=== PATIENT | male | born 1995 | race Caucasian/White ===

== ENCOUNTER 2016-07-17 17:31 | Emergency (ER) | payer OTHER ==
[2016-07-17] MEDS ORDERED: Acetaminophen TAB* 325 MG PO ONE (18:06)
[2016-07-17] MEDS ORDERED: NS 0.9% 1000 ML* 1,000 ML IV ONE (18:10)
[2016-07-17 18:17] LABS: Hematocrit 40 % (42-52); Mean Corpuscular HGB Conc 35 g/dl (31-36); Mean Corpuscular Hemoglobin 30 pg (27-31); Mean Corpuscular Volume 88 fL (80-94); Mean Platelet Volume 8 um3 (7.4-10.4); Red Cell Distribution Width 13 % (10.5-15); White Blood Count 7.9 10^3/ul (3.5-10.8)
[2016-07-17 18:35] LABS: Albumin 4.6 g/dL (3.2-5.2); BUN/Creatinine Ratio 7.5 (8-20); Calcium 9.2 mg/dL (8.6-10.3); EGFR African American 134.6 (>60); EGFR Non-African American 104.7 (>60); Globulin 2.8 g/dL (2-4); Potassium 3.6 mmol/L (3.5-5.0); Total Bilirubin 0.6 mg/dL (0.2-1.0); Total Protein 7.4 g/dL (6.4-8.9)
[2016-07-17] MEDS ORDERED: Oseltamivir CAP* 75 MG PO ONE (19:10)
[2016-07-17] MEDS ORDERED: Ibuprofen TAB* 200 MG PO ONE (19:14)
[2016-07-17 20:23] VITALS: BP 104/47
--- NOTE | 2016-07-17 21:05 | ED ---
Blue Perea Billy, scribed for Davis Bonner MD on 07/17/16 at 1828 . Headache - HPI Summary HPI Summary: Patient is a 20 year-old male coming to [facility] presenting with constant headache starting yesterday, much worse starting earlier today. He also reports cough, nausea, and urinary retention (last urine several hours ago). No dysuria or hematuria. He also reports rhinorrhea and nasal congestion for the last 2-3 days. He also reports diffuse back pain and myalgia. Denies sore throat. ASA today for his symptoms, no improvement. - History Of Current Complaint Chief Complaint: EDFever Stated Complaint: HEADACHE-SENT FROM [facility] Time Seen by Provider: 07/17/16 18:04 Hx Obtained From: Patient Onset/Duration: Gradual Onset, Started hours ago, Still Present Initially Headache Was: Moderate Currently Pain Is: Moderate Timing: Constant Aggravating Factor: Nothing Allevating Factors: Nothing Associated Signs And Symptoms: Nausea, Other (Noted In Comments) - cough, urinary retention, rhinorrhea, nasal congestion - Allergies/Home Medications Allergies/Adverse Reactions: Allergies Allergy/AdvReac Type Severity Reaction Status Date / Time Cough Syrup Allergy Unknown Uncoded 07/17/16 18:05 Reaction Details PMH/Surg Hx/FS Hx/Imm Hx Infectious Disease History: No Infectious Disease History: Denies: Traveled Outside the US in Last 30 Days Review of Systems Positive: Nasal Discharge. Negative: Sore Throat Positive: Cough Positive: Nausea Positive: other - urinary retention. Negative: dysuria, hematuria Positive: Myalgia, Other - diffuse back pain Positive: Headache All Other Systems Reviewed And Are Negative: Yes Physical Exam Triage Information Reviewed: Yes Vital Signs On Initial Exam: Initial Vitals Temp Pulse Resp BP Pulse Ox 101.8 F 100 16 121/73 98 07/17/16 18:02 07/17/16 18:02 07/17/16 18:02 07/17/16 18:02 07/17/16 18:02 Vital Signs Reviewed: Yes Appearance: Positive: Well-Appearing - nontoxic, Pain Distress - uncomfortable Skin: Positive: Other - No rashes, petechia, or purpura of the chest, back, or extremities. Eyes: Positive: TIGRE ENT: Positive: TM bulging - Right TM bulging, injected, without obvious purulent effusion., Tonsillar swelling - Bilateral tonsillar hypertrophy. Negative: Pharyngeal erythema, Tonsillar exudate Neck: Positive: Other: - Neck tenderness without adenopathy or swelling; neck soft, no nuchal rigidity; no obvious neck stiffness. Negative: No Lymphadenopathy, Nuchal Rigidity Respiratory/Lung Sounds: Positive: Clear to Auscultation. Negative: Rales, Wheezes Cardiovascular: Positive: RRR, Other - no gallops, S1, S2. Negative: Murmur, Rub Abdomen Description: Positive: Nontender, Soft. Negative: CVA Tenderness (R), CVA Tenderness (L) Musculoskeletal: Positive: Other - calves are soft and nontender. Negative: Edema Left, Edema Right Neurological: Positive: Alert, Oriented to Person Place, Time Psychiatric: Positive: Affect/Mood Appropriate - logical and coherent AVPU Assessment: Alert Diagnostics - Vital Signs Vital Signs Temp Pulse Resp BP Pulse Ox 07/17/16 18:02 101.8 F 100 16 121/73 98 - Laboratory Lab Results: Lab Results 07/17/16 Range/Units 18:06 WBC 7.9 (3.5-10.8) 10^3/ul RBC 4.60 (4.0-5.4) 10^6/ul Hgb 14.0 (14.0-18.0) g/dl Hct 40 L (42-52) % MCV 88 (80-94) fL MCH 30 (27-31) pg MCHC 35 (31-36) g/dl RDW 13 (10.5-15) % Plt Count 203 (150-450) 10^3/ul MPV 8 (7.4-10.4) um3 Neut % (Auto) 80.9 (38-83) % Lymph % (Auto) 3.5 L (25-47) % Trinity % (Auto) 14.9 H (1-9) % Eos % (Auto) 0.1 (0-6) % Baso % (Auto) 0.6 (0-2) % Absolute Neuts (auto) 6.4 (1.5-7.7) 10^3/ul Absolute Lymphs (auto) 0.3 L (1.0-4.8) 10^3/ul Absolute Monos (auto) 1.2 H (0-0.8) 10^3/ul Absolute Eos (auto) 0 (0-0.6) 10^3/ul Absolute Basos (auto) 0 (0-0.2) 10^3/ul Absolute Nucleated RBC 0 10^3/ul Nucleated RBC % 0 Result Diagrams: 07/17/16 18:06 07/17/16 18:06 Lab Statement: Any lab studies that have been ordered have been reviewed, and results considered in the medical decision making process. Headache Course/Dx - Course Assessment/Plan: 21 year-old otherwise healthy [employer] student developed progressive symptoms over the last 12 hours. He has mylagia, fever, headache, influenza-positive. I do not believe this is a false negative, namely because we have seen many influenza-positive tests here in [place]. The flu season has hit. This is clinically consistent as it was rapidly progressive. I do not believe this is meningitis, especially bacterial meningitis because WBC normal, he does not have meningococcal rash, and has been immunized. Finally, he has no nuchal rigidity but states that he neck is stiff, and negative Kernig and Brudzinski. In short, he really does not have any convincing meningeal signs. - Diagnoses Differential Diagnosis/HQI/PQRI: Epidural Hematoma, Subdural Hematoma, Meningitis, Migraine, Sinus Headache, Subarachnoid Hemorrhage, Temporal Arteritis, Tension Headache, Viral Syndrome Provider Diagnoses: Influenza A Discharge - Discharge Plan Condition: Good Disposition: HOME Prescriptions: Oseltamivir CAP* [Tamiflu CAP*] 75 mg PO BID #9 cap Patient Education Materials: Influenza (ED) Referrals: [facility] [Outside] - 2 Days The documentation as recorded by the Blue hernández Billy accurately reflects the service I personally performed and the decisions made by me, Davis Bonner MD.
== END 2016-07-17 20:21 | disposition home or self-care (01) ==
LOC: ED 17:31
DX: J09.X2 Influenza due to identified novel influenza A virus with other respiratory manifestations (principal); R51 Headache; R05 Cough; R33.9 Retention of urine, unspecified; R11.0 Nausea
CPT/HCPCS: 36415; 80053; 85025; 87502; 99283; A9270-GY

== ENCOUNTER 2016-07-25 13:04 | Emergency (ER) | payer OTHER ==
[2016-07-25 14:08] VITALS: BP 126/75
--- NOTE | 2016-07-25 14:15 | UC ---
Throat Pain/Nasal Edwin HPI - HPI Summary HPI Summary: sore throat fevers, body aches began last night - History of Current Complaint Chief Complaint: UCGeneralIllness Stated Complaint: SORE THROAT Time Seen by Provider: 07/25/16 13:58 Hx Obtained From: Patient Onset/Duration: Sudden Onset, Lasting Days - 1, Still Present Severity: Moderate Pain Intensity: 7 Pain Scale Used: 0-10 Numeric Cough: None Associated Signs & Symptoms: Positive: Fever - Allergies/Home Medications Allergies/Adverse Reactions: Allergies Allergy/AdvReac Type Severity Reaction Status Date / Time Cough Syrup Allergy Anaphylatic Uncoded 07/25/16 13:58 Shock PMH/Surg Hx/FS Hx/Imm Hx Previously Healthy: Yes - Surgical History Surgical History: None - Family History Family History: denies cardiovascular issues in family lineage - Social History Occupation: Student Lives: With Family Alcohol Use: Weekly Alcohol Amount: Once Substance Use Type: Marijuana Smoking Status (MU): Never Smoked Tobacco Have You Smoked in the Last Year: No Review of Systems Constitutional: Fever, Chills, Fatigue Skin: Negative Eyes: Negative ENT: Sore Throat Respiratory: Negative Cardiovascular: Negative Gastrointestinal: Negative Genitourinary: Negative Motor: Negative Neurovascular: Negative Musculoskeletal: Negative Neurological: Negative Psychological: Negative All Other Systems Reviewed And Are Negative: Yes Physical Exam Triage Information Reviewed: Yes Appearance: Well-Nourished, Ill-Appearing - moderate, Pain Distress - mild Vital Signs: Initial Vital Signs Temp 101.9 F 07/25/16 14:03 Pulse 101 07/25/16 14:03 Resp 18 07/25/16 14:03 BP 126/75 07/25/16 14:03 Pulse Ox 98 07/25/16 14:03 Vital Signs Reviewed: Yes Eye Exam: Normal Eyes: Positive: Conjunctiva Clear ENT Exam: Other ENT: Positive: Hearing grossly normal, Pharyngeal erythema, TMs normal, Tonsillar swelling, Tonsillar exudate. Negative: Nasal drainage Dental Exam: Normal Neck: Positive: Supple, Tenderness @, Enlarged Nodes @ Respiratory Exam: Normal Respiratory: Positive: Chest non-tender, Lungs clear, Normal breath sounds, No respiratory distress, No accessory muscle use Cardiovascular Exam: Normal Cardiovascular: Positive: No Murmur, Pulses Normal, Brisk Capillary Refill, Tachycardia Musculoskeletal Exam: Normal Musculoskeletal: Positive: Strength Intact, ROM Intact, No Edema Neurological Exam: Normal Neurological: Positive: Alert, Muscle Tone Normal Psychological Exam: Normal Skin Exam: Normal Skin: Positive: rashes Diagnostics - Laboratory Diagnostic Studies Completed/Ordered: rst (+) Throat Pain/Nasal Course/Dx - Course Assessment/Plan: Prednisone, Tylenol, Amoxicillin increase fluids, follow with PCP re-check prn - Differential Dx/Diagnosis Differential Diagnosis/HQI/PQRI: Otitis Media, Pharyngitis, Sinusitis, URI Provider Diagnoses: Strep Pharyngitis Discharge - Discharge Plan Condition: Stable Disposition: HOME Prescriptions: Amoxicillin CAP* 500 mg PO Q12H #19 cap predniSONE TAB* [Deltasone TAB*] 50 mg PO DAILY #2 tab Patient Education Materials: Prednisone (By mouth), Amoxicillin (By mouth), Strep Throat (ED), Fever in Adults (ED) Forms: *School Release Referrals: [facility] [Outside] - 1 Day
[2016-07-25] MEDS ORDERED: Acetaminophen TAB* 325 MG PO ONE (14:18)
[2016-07-25] MEDS ORDERED: predniSONE TAB* 20 MG PO ONE (14:18)
[2016-07-25] MEDS ORDERED: Amoxicillin PO (*) 500 MG CAP PO ONE (14:19)
== END 2016-07-25 14:35 | disposition home or self-care (01) ==
LOC: UCEAST 13:04
DX: J02.0 Streptococcal pharyngitis (principal); F12.90 Cannabis use, unspecified, uncomplicated
CPT/HCPCS: 87651; 99212; A9270-GY; G0463; J7512

== ENCOUNTER 2016-08-08 14:29 | Emergency (ER) | payer OTHER ==
[2016-08-08 15:45] VITALS: BP 137/89
--- NOTE | 2016-08-08 16:12 | UC ---
Throat Pain/Nasal Edwin HPI - HPI Summary HPI Summary: compalint of sore throat for 1.5 days denies feverbut felt chills yesterday took some advil with some relief today treated for strep throat and finsished antibiotics and prednisone 2 days ago - History of Current Complaint Chief Complaint: UCRespiratory Stated Complaint: SORE THROAT Time Seen by Provider: 08/08/16 16:06 Hx Obtained From: Patient - Allergies/Home Medications Allergies/Adverse Reactions: Allergies Allergy/AdvReac Type Severity Reaction Status Date / Time Ethanol [From Robitussin] Allergy Severe Anaphylatic Verified 08/08/16 15:45 Shock Guaifenesin [From Robitussin] Allergy Severe Anaphylatic Verified 08/08/16 15:45 Shock Home Medications: Home Medications Ibuprofen TAB* [Advil TAB*] 400 mg PO PRN 08/08/16 [History] PMH/Surg Hx/FS Hx/Imm Hx Previously Healthy: Yes - Surgical History Surgical History: None - Family History Known Family History: Negative: Cardiac Disease, Hypertension, Diabetes Family History: denies cardiovascular issues in family lineage - Social History Occupation: Student Lives: With Family Alcohol Use: Occasionally Alcohol Amount: Once Substance Use Type: Marijuana Smoking Status (MU): Never Smoked Tobacco Have You Smoked in the Last Year: No Review of Systems Constitutional: Chills Skin: Negative Eyes: Negative ENT: Sore Throat Respiratory: Negative Cardiovascular: Negative Gastrointestinal: Negative Genitourinary: Negative Motor: Negative Neurovascular: Negative Musculoskeletal: Negative Neurological: Negative Psychological: Negative All Other Systems Reviewed And Are Negative: Yes Physical Exam Triage Information Reviewed: Yes Appearance: No Pain Distress, Well-Nourished Vital Signs: Initial Vital Signs Temp 98.3 F 08/08/16 15:42 Pulse 73 08/08/16 15:42 Resp 16 08/08/16 15:42 BP 137/89 08/08/16 15:42 Pulse Ox 98 08/08/16 15:42 Vital Signs Reviewed: Yes Eyes: Positive: Conjunctiva Clear ENT: Positive: Pharyngeal erythema, Nasal congestion, Nasal drainage, Tonsillar swelling - 3+, Tonsillar exudate Dental: Positive: Cervical Lymphadenopathy Respiratory: Positive: Lungs clear, Normal breath sounds, No respiratory distress Cardiovascular: Positive: RRR, No Murmur, Pulses Normal Abdomen Description: Positive: Nontender, Soft Bowel Sounds: Positive: Present Musculoskeletal Exam: Normal Neurological: Positive: Alert Psychological Exam: Normal Skin Exam: Normal Throat Pain/Nasal Course/Dx - Course Course Of Treatment: exam completed. tonsils very enlarged, cervical lymphadenopathy- negative for strep. will test for EBV - Differential Dx/Diagnosis Differential Diagnosis/HQI/PQRI: Pharyngitis, Tonsillitis Provider Diagnoses: pharyngitis Discharge - Discharge Plan Condition: Stable Disposition: HOME Patient Education Materials: Mononucleosis (ED), Pharyngitis (ED) Referrals: Non Staff,Doctor [Primary Care Provider] - Additional Instructions: PHARYNGITIS (Sore Throat) What is Pharyngitis? The medical name for a sore throat is Pharyngitis. It is caused by an infection or irritation of your throat or tonsils. The infection can be caused by a virus or by bacteria. Not everyone with Pharyngitis needs antibiotics. Antibiotics will not make viral infections better, and they will not help a sore throat caused by irritation. Symptoms May Include: Sore throat Swelling of the glands in the neck Trouble or pain with swallowing Fever Headache Cough Extreme tiredness Ear pain Treatment Recommendations: Gargle every few hours with a solution of 1/4 teaspoon of salt dissolved in 1/ 2 cup of warm water. Drink plenty of warm beverages, like tea with lemon, (with or without honey) and soup. You may eat and drink cold foods and liquids like frozen yogurt, popsicles, and ice water if that makes your throat feel better. The goal is to keep you well hydrated. Use a "cool-mist" vaporizer or humidifier in the room where you spend most of your time. If you get a sore throat often, consider adding an electronic air filter and humidifier to your furnace system. Don't smoke. Do not eat spicy foods. Take medicine exactly as prescribed. If you do not think it is helping, call your healthcare provider. Do not increase how much or how often you take it without getting their OK first. Non-prescription anti-inflammatory medicine like ibuprofen (Motrin, Advil) or naproxen (Aleve) may help lessen the pain. You should not take these medicines if you have had bleeding in your stomach in the past. Acetaminophen ( Tylenol) is another choice of medicine that may help the pain. If pain medicine that makes you tired or sleepy or contains narcotics is prescribed, you should not drink, drive, or participate in any other activities that you need to be clear-headed for. Please keep all medicines out of the reach of children. Do not get in close contact with anyone you know who has a sore throat. Use throat lozenges (Cepostat, [place], etc.) or suck on hard candy for temporary relief of the pain with swallowing. (Do not give to children under age 5.) Call Your Doctor or Return Here IF: Your symptoms do not start to get better within 2 days or you become worse. You have a fever over 101.0 F orally. You cant swallow liquids or saliva. You are drooling. You start to have trouble breathing. You start to have a rash. You start to have a stiff neck. You start to have pain in your chest. You start to have any symptoms that are new or worry you.
[2016-08-09 11:39] LABS: Mono Internal Control QC Line Present
== END 2016-08-08 17:11 | disposition home or self-care (01) ==
LOC: UCEAST 14:29
DX: J02.9 Acute pharyngitis, unspecified (principal); Z88.6 Allergy status to analgesic agent
CPT/HCPCS: 36415; 86308; 87651; 99211; G0463

== ENCOUNTER 2017-02-21 18:11 | Emergency (ER) | payer OTHER ==
[2017-02-21] MEDS ORDERED: Ondansetron INJ* 2 MG/ML VIAL IV ONE (19:23)
[2017-02-21] MEDS ORDERED: NS 0.9% 1000 ML* 1,000 ML IV ONE (19:23)
[2017-02-21] MEDS ORDERED: Acetaminophen TAB* 325 MG PO ONE (19:23)
[2017-02-21 20:19] LABS: Hematocrit 40 % (42-52); Hemoglobin 13.8 g/dl (14.0-18.0); Mean Corpuscular HGB Conc 34 g/dl (31-36); Mean Corpuscular Hemoglobin 30 pg (27-31); Mean Corpuscular Volume 88 fL (80-94); Mean Platelet Volume 8 um3 (7.4-10.4); Red Blood Count 4.56 10^6/ul (4.0-5.4); Red Cell Distribution Width 13 % (10.5-15)
[2017-02-21 20:28] LABS: Urine Bacteria Absent (Absent); Urine Bilirubin Negative (Negative); Urine Glucose Negative (Negative); Urine Nitrite Negative (Negative)
[2017-02-21 20:29] LABS: Albumin 3.8 g/dL (3.2-5.2); BUN/Creatinine Ratio 11.2 (8-20); Calcium 8.7 mg/dL (8.6-10.3); EGFR African American 140.2 (>60); Globulin 3.1 g/dL (2-4); Magnesium 1.6 mg/dL (1.9-2.7); Potassium 3.6 mmol/L (3.5-5.0); Total Bilirubin 0.5 mg/dL (0.2-1.0); Total Protein 6.9 g/dL (6.4-8.9)
[2017-02-21 20:46] LABS: Mono Internal Control QC Line Present
[2017-02-21 20:47] LABS: Manual Entry Verification MER0007
--- NOTE | 2017-02-21 20:47 | ED ---
Sonny Perea Rebecca, scribed for Gabino Roth MD on 02/21/17 at 1926 . Complex/Multi-Sys Presentation - HPI Summary HPI Summary: Pt is a 21 y/o M referred from [facility] with multiple complaints. Five nights ago he began experiencing chills, then upon waking up the next morning he began experiencing N/V and myalgias. He now additionally c/o sore throat, decreased PO intake and swollen tonsils. He has been taking Tylenol, Ibuprofen and Zofran to treat the symptoms with the last dose of medication this morning. Throat pain is aggravated by swallowing. He was seen by [facility]ana 2 days ago where he was given an Rx for Zofran and had a negative strep test and again today when he was referred to [facility] ED. - History Of Current Complaint Chief Complaint: EDGeneral Time Seen by Provider: 02/21/17 19:09 Hx Obtained From: Patient Onset/Duration: Lasting Days, Still Present Severity Currently: Severe - 03/29 Location: Pain At: - Myalgias, throat pain Aggravating Factor(s): Throat pain - Swallowing Alleviating Factor(s): Tylenol, Ibuprofen and Zofran Associated Signs And Symptoms: Positive: Nausea, Vomiting, Decreased Oral Intake , Other - Myalgias, sore throat, swollen tonsils and chills - Allergies/Home Medications Allergies/Adverse Reactions: Allergies Allergy/AdvReac Type Severity Reaction Status Date / Time Guaifenesin [From Robitussin] Allergy Severe Anaphylatic Verified 08/08/16 15:45 Shock PMH/Surg Hx/FS Hx/Imm Hx Previously Healthy: Yes Endocrine/Hematology History: Denies: Hx Diabetes Cardiovascular History: Denies: Hx Coronary Artery Disease Infectious Disease History: No Infectious Disease History: Denies: Traveled Outside the [place] in Last 30 Days - Family History Known Family History: Negative: Cardiac Disease, Hypertension, Diabetes Family History: denies cardiovascular issues in family lineage - Social History Alcohol Use: Occasionally Alcohol Amount: Once Substance Use Type: Reports: Marijuana Smoking Status (MU): Never Smoked Tobacco Have You Smoked in the Last Year: No Review of Systems Positive: Chills Positive: Sore Throat, Other - Swollen tonsils Positive: Vomiting, Nausea, Other - Decreased PO intake Positive: Myalgia All Other Systems Reviewed And Are Negative: Yes Physical Exam Triage Information Reviewed: Yes Vital Signs On Initial Exam: Initial Vitals Temp Pulse Resp BP Pulse Ox 102.2 F 89 17 121/64 100 02/21/17 18:19 02/21/17 18:19 02/21/17 18:19 02/21/17 18:19 02/21/17 18:19 Vital Signs Reviewed: Yes Appearance: Positive: Well-Appearing, No Pain Distress Skin: Positive: Warm Head/Face: Positive: Normal Head/Face Inspection Eyes: Positive: TIGRE ENT: Positive: Pharyngeal erythema, TMs normal, Tonsillar exudate Neck: Positive: Supple, Nontender Respiratory/Lung Sounds: Positive: Clear to Auscultation, Breath Sounds Present Cardiovascular: Positive: RRR Abdomen Description: Positive: Nontender, Soft Bowel Sounds: Positive: Present Musculoskeletal: Positive: Strength/ROM Intact Neurological: Positive: Alert, Oriented to Person Place, Time, Normal Gait Psychiatric: Positive: Affect/Mood Appropriate - [place] Coma Scale Coma Scale Total: 15 Diagnostics - Vital Signs Vital Signs Temp Pulse Resp BP Pulse Ox 02/21/17 18:33 102.2 F 89 17 121/64 100 02/21/17 18:19 102.2 F 89 17 121/64 100 - Laboratory Result Diagrams: 02/21/17 19:57 02/21/17 19:57 Lab Statement: Any lab studies that have been ordered have been reviewed, and results considered in the medical decision making process. Re-Evaluation - Re-Evaluation First Eval Re-Evaluation Time: 21:18 Change: Improved Comment: Discussed results and D/C plan. Complex Multi-Symp Course/Dx Assessment/Plan: Pt is a 21 y/o M referred from [facility] with multiple complaints. Five nights ago he began experiencing chills, then upon waking up the next morning he began experiencing N/V and myalgias. He now additionally c/o sore throat, decreased PO intake and swollen tonsils. He has been taking Tylenol, Ibuprofen and Zofran to treat the symptoms with the last dose of medication this morning. Throat pain is aggravated by swallowing. He was seen by Kelly 2 days ago where he was given an Rx for Zofran and had a negative strep test and again today when he was referred to [facility] ED. Monoscreen and Group A Rapid strep are negative. UA negative for UTI. In the ED course, pt received Tylenol, Zofran and fluids. Pt will be D/C to home with Dx of febrile illness and a follow up with his PCP. He understands and agrees. Elevated BP noted and advised to f/u. - Diagnoses Provider Diagnoses: Febrile illness Discharge - Discharge Plan Condition: Stable Disposition: HOME Patient Education Materials: Fever in Adults (ED) Forms: *School Release Referrals: [facility] [Primary Care Provider] - 3 Days The documentation as recorded by the Sonny hernández Rebecca accurately reflects the service I personally performed and the decisions made by me, Gabino Roth MD.
[2017-02-21 21:02] LABS: TSH (Thyroid Stimulating Horm) 1.32 mcIU/mL (0.34-5.60)
[2017-02-21 21:58] VITALS: BP 122/69
== END 2017-02-21 21:57 | disposition home or self-care (01) ==
LOC: ED 18:11
DX: R50.9 Fever, unspecified (principal); R11.2 Nausea with vomiting, unspecified; J02.9 Acute pharyngitis, unspecified; M79.1 Myalgia
CPT/HCPCS: 36415; 80053; 81003; 81015; 82550; 83605; 83735; 84443; 85025; 86140; 86308; 87651; 96360; 96374; 99282; A9270-GY; J2405

== ENCOUNTER 2017-11-12 14:21 | Emergency (ER) | payer OTHER ==
[2017-11-12 14:50] VITALS: BP 154/76
--- NOTE | 2017-11-12 16:15 | UC ---
Tonja Perea Julia, scribed for David Kiran MD on 11/12/17 at 1524 . Ear Complaint HPI - HPI Summary HPI Summary: This patient is a 22 year old M presenting to [facility] with a chief complaint of diminished hearing in the left ear for the past two weeks. Patient denies ear pain, fever, and chills. He reports recent flu roughly six weeks ago. - History of Current Complaint Chief Complaint: UCEar Stated Complaint: EAR ACHE Time Seen by Provider: 11/12/17 15:10 Hx Obtained From: Patient Onset/Duration: Gradual Onset, Lasting Weeks Pain Intensity: 0 Pain Scale Used: 0-10 Numeric Associated Signs/Symptoms: Positive: Hearing Loss - Allergies/Home Medications Allergies/Adverse Reactions: Allergies Allergy/AdvReac Type Severity Reaction Status Date / Time guaifenesin [From Robitussin] Allergy Anaphylatic Verified 11/12/17 14:51 Shock PMH/Surg Hx/FS Hx/Imm Hx Previously Healthy: Yes - Surgical History Surgical History: None - Family History Known Family History: Negative: Cardiac Disease, Hypertension, Diabetes Family History: denies cardiovascular issues in family lineage - Social History Occupation: Student Alcohol Use: Daily Alcohol Amount: Once Substance Use Type: Marijuana Substance Use Comment - Amount & Last Used: q2days Smoking Status (MU): Never Smoked Tobacco Have You Smoked in the Last Year: No Review of Systems Constitutional: Negative ENT: Other - hearing loss All Other Systems Reviewed And Are Negative: Yes Physical Exam - Summary Physical Exam Summary: General: well-appearing, no pain distress Skin: warm, color reflects adequate perfusion, dry Head: normal Eyes: EOMI, TIRGE ENT: cerumen impacting of left ear Neck: supple, nontender Respiratory: CTA, breath sounds present Cardiovascular: RRR Abdomen: soft, nontender Bowel: present Musculoskeletal: normal, strength/ROM intact Neurological: sensory/motor intact, A&O x3 Psychological: affect/mood appropriate Triage Information Reviewed: Yes Vital Signs: Initial Vital Signs Temp 98.4 F 11/12/17 14:44 Pulse 71 11/12/17 14:44 Resp 16 11/12/17 14:44 BP 154/76 11/12/17 14:44 Pulse Ox 100 11/12/17 14:44 Vital Signs Reviewed: Yes Re-Evaluation - Re-Evaluation 1 Re-Evaluation Time: 15:55 Change: Improved - Cerumen is removed from left ear. Pt feels better. Ear Complaint Course/Dx - Differential Dx/Diagnosis Provider Diagnoses: left ear cerumen impaction Discharge - Sign-Out/Discharge Documenting (check all that apply): Discharge/Admit/Transfer - Discharge Plan Condition: Stable Disposition: HOME Patient Education Materials: Cerumen Impaction (ED) Referrals: [facility] [Primary Care Provider] - Additional Instructions: FOLLOW UP WITH YOUR DOCTOR IF NOT COMPLETELY IMPROVED. GET RECHECKED FOR ANY WORSENING OF YOUR CONDITION OR QUESTIONS OR CONCERNS. - Billing Disposition and Condition Condition: STABLE Disposition: HOME The documentation as recorded by the Tonja hernández Julia accurately reflects the service I personally performed and the decisions made by me, David Kiran MD.
== END 2017-11-12 16:04 | disposition home or self-care (01) ==
LOC: UCEAST 14:21
DX: H61.22 Impacted cerumen, left ear (principal)
CPT/HCPCS: 99212; G0463